=== PATIENT | male | born 1965 | race Caucasian/White ===

== ENCOUNTER 2018-01-15 09:54 | Emergency (ER) | payer BC, OTHER ==
--- NOTE | 2018-01-15 11:20 | EDPHY ---
H & P Stated Complaint: Accidentally struck in head yesterday @ work;no LOC;here to get checked out - Personal History Current Tetanus Diphtheria and Acellular Pertussis (TDAP): Yes - Medical/Surgical History Other PMH: healthy - Social History Smoking Status: Never smoked Time Seen by Provider: 01/15/18 11:05 HPI/ROS: CHIEF COMPLAINT: Left temporal head injury yesterday from a metal bar HISTORY OF PRESENT ILLNESS: 52-year-old male arrives via private vehicle complaining of head injury which occurred while he was at work when individual accidentally impacted him with a metal bar to his left temporal region. No loss of consciousness. He has been experiencing headache, nausea, feeling"out of it"ever since. No anticoagulant use. This was accidental. No midline C- spine pain. No peripheral paresthesia, weakness, numbness. No chest pain or trauma no back pain or trauma. No gait instability. PRIMARY CARE PROVIDER: Worker's compensation REVIEW OF SYSTEMS: A ten point review of systems was performed and is negative with the exception of the items mentioned in the HPI PAST MEDICAL/SURGICAL HISTORY: no anticoagulant use, no relevant medical/ surgical history SOCIAL HISTORY: denies alcohol use at time of incident PHYSICAL EXAM 1) GENERAL: Well-developed, well-nourished, alert and oriented. Appears to be in no acute distress. Answering questions appropriately. 2) HEAD: Normocephalic, atraumatic, no hematoma no depression 3) HEENT: Pupils equal, round, reactive to light bilaterally. Negative Horners. Nasopharynx, oropharynx, clear. No deformity or angulation of nose. No septal hematoma. No rhinorrhea. No oral trauma. Ears bilaterally with normal tympanic membranes. No hemotympanum. No fluid or blood in the external auditory canal. No raccoon eyes. No March sign. Teeth are normally aligned with no gross malocclusion, TMJ bilaterally nontender, facial bones nontender including the zygomatic arch, maxilla mandible. 4) NECK: No cervical collar is on. Posterior cervical spine is nontender, no stepoff, no effusion. Full range of motion which does not elicit any midline cervical spine pain, no posterior midline tenderness, no step-off. 5) LUNGS: Clear to auscultation bilaterally, no wheezes, no rhonchi, no retractions. No obvious signs of trauma. No chest wall pain. No flaring, no grunting. Moving symmetrically. No crepitus. 6) HEART: Regular rate and rhythm, 7) ABDOMEN: No guarding, no rebound, no focal tenderness, no peritoneal signs, no signs of trauma, no ecchymosis 8) MUSCULOSKELETAL: Moving all extremities, no focal areas of tenderness, no obvious trauma. 9) BACK: No midline vertebral tenderness, no fluctuance, no step-off, no obvious trauma, no visual or palpable abnormality. 10) SKIN: No laceration. No abrasion 11) NEURO: Awake, alert, and oriented to person, place and time. Answers questions appropriately. There were no obvious focal neurologic abnormalities. No cerebellar dysfunction. Cranial nerves 2 through to 12 intact. Normal steady gait. Upper and lower extremities bilaterally with strength 5 / 5, reflexes 2+. DIFFERENTIAL DIAGNOSIS: Not necessarily in any particular order, my differential diagnosis includes, but is not limited to, concussion, skull fracture, intraparenchymal contusion, subarachnoid, subdural and epidural hematoma. The patient understands that this diagnosis is provisional and can never be 100% accurate. (Christa Reid) Constitutional: Initial Vital Signs Temperature (C) 36.4 C 01/15/18 10:05 Heart Rate 75 01/15/18 10:05 Respiratory Rate 16 01/15/18 10:05 Blood Pressure 139/88 H 01/15/18 10:05 O2 Sat (%) 95 01/15/18 10:05 O2 Delivery Mode Room Air Medical Decision Making - Diagnostics Imaging: Discussed imaging studies w/ call center agent Radiologist - Diagnostics Imaging Results: Images reviewed myself (Christa Reid) ED Course/Re-evaluation: 11:40 a.m.: CT interpreted by radiologist as negative for posttraumatic sequelae Patient was re-evaluated with serial examinations. He is answering questions appropriately with no focal neurologic deficits. We discussed the post concussive signs and symptoms, we discussed 2nd impact syndrome. Given follow- up information. He feels comfortable being discharged. All questions and concerns addressed by myself. I saw this patient independently based on established practice protocols. Care of patient under supervision of secondary supervising physician Dr Lenin Evans. (Christa Reid) I did not see this patient while he was in the emergency department. However his care was discussed with the PA while the patient was in the department. I agree with treatment plan and management (NathanLenin springer) Departure - Departure Disposition: Home, Routine, Self-Care Clinical Impression: Concussion Qualifiers: Encounter type: initial encounter Loss of consciousness presence/duration: without LOC Qualified Code(s): S06.0X0A - Concussion without loss of consciousness, initial encounter Condition: Good Instructions: Concussion (ED), Head Injury (ED) Additional Instructions: ALTHOUGH THERE IS NO EVIDENCE OF SERIOUS HEAD INJURY AT THIS TIME, DELAYED SIGNS CAN APPEAR 24 TO 48 HOURS AFTER INJURY. PLEASE RETURN TO THE EMERGENCY DEPARTMENT (ED) IMMEDIATELY IF YOU HAVE INCREASED HEADACHE, PERSISTENT HEADACHE , VOMITING, WEAKNESS, CONFUSION OR VISUAL PROBLEMS. WE RECOMMEND THAT YOU DO NOT RESUME CONTACT SPORTS OR ACTIVITIES THAT TAKE COORDINATION OR BALANCE SUCH SKIING OR RIDING A BICYCLE UNTIL CLEARED TO DO SO BY YOUR DOCTOR OR BY A NEUROLOGIST. A pesar de que no hay evidencia de lesion severa de la negro en mahamed momento, senales tardias pueden aparecer en 24 a 48 horas despues de la lesion. Por favor regrese al departamento de emergencias inmediatamente si tiene aumento del dolor de negro persistente, vomito, debilidad, confusion o problemas visuales. Le recomendamos que no resuma deportes de contacto o actividades que requieran cordinacion o balance vero esquiar, montar en bibicleta hasta que le lo permita mary medico o el Neurolog. Referrals: Tamiko Walker MD [Medical Doctor] - 5-7 days, call for appt. Stand Alone Forms: Work Excuse Print Language: Sami
[2018-01-15 12:12] VITALS: BP 147/98
== END 2018-01-15 12:15 | disposition home or self-care (01) ==
DX: S06.0X0A Concussion without loss of consciousness, initial encounter (principal); W22.8XXA Striking against or struck by other objects, initial encounter; Y92.69 Other specified industrial and construction area as the place of occurrence of the external cause; Y99.0 Civilian activity done for income or pay; Y93.89 Activity, other specified